=== PATIENT | female | born 1955 | race Caucasian/White ===

== ENCOUNTER → 2017-08-24 | Outpatient (CLI) | payer OTHER | LOC: M WUC 18:00 | DX: Z00.00 Encounter for general adult medical examination without abnormal findings (principal) | CPT/HCPCS: 71046 ==

== ENCOUNTER 2018-07-17 10:03 | Day surgery (SDC) | payer MEDICARE, OTHER ==
[~2018-07-17 10:03] MED LIST: LIDOCAINE 2% INJ 100 MG/5 ML SDV (FOR ANES.) As Ordered; PROPOFOL 200 MG/20 ML VIAL As Ordered
[2018-07-17] MEDS: NS 1,000 ML IV (10:22)
[2018-07-17] MEDS ORDERED: LIDOCAINE 2% INJ 100 MG/5 ML SDV (FOR ANES.) As Ordered (10:59)
[2018-07-17] MEDS ORDERED: PROPOFOL 200 MG/20 ML VIAL As Ordered (11:57)
== END 2018-07-17 12:54 | disposition home or self-care (01) ==
LOC: M OPP 10:03
DX: Z12.11 Encounter for screening for malignant neoplasm of colon (principal); K63.5 Polyp of colon; D12.3 Benign neoplasm of transverse colon; K57.30 Diverticulosis of large intestine without perforation or abscess without bleeding; K64.0 First degree hemorrhoids; K29.50 Unspecified chronic gastritis without bleeding; K20.9 Esophagitis, unspecified; K22.8 Other specified diseases of esophagus; K44.9 Diaphragmatic hernia without obstruction or gangrene; E03.9 Hypothyroidism, unspecified; I10 Essential (primary) hypertension; G47.30 Sleep apnea, unspecified; F33.9 Major depressive disorder, recurrent, unspecified; R06.83 Snoring; Z79.890 Hormone replacement therapy; Z79.899 Other long term (current) drug therapy; Z79.82 Long term (current) use of aspirin; Z86.19 Personal history of other infectious and parasitic diseases; Z88.1 Allergy status to other antibiotic agents; Z88.8 Allergy status to other drugs, medicaments and biological substances
CPT/HCPCS: 45385

== ENCOUNTER → 2021-10-27 | Outpatient (CLI) | payer MEDICARE, OTHER ==
[~2021-10-27] MED LIST changes: +BUPR-69; +CHLO125TA PO; -LIDOCAINE 2% INJ 100 MG/5 ML SDV (FOR ANES.) As Ordered; -PROPOFOL 200 MG/20 ML VIAL As Ordered; +SERT50TA29; +SUPRSOL2; +SYNT100T
== END ==
LOC: M RAD 14:27
PROVIDERS: ATTEND Nurse Practitioner Adult Health
DX: M79.89 Other specified soft tissue disorders (principal)

== ENCOUNTER → 2021-12-06 | Outpatient (CLI) | payer MEDICARE, OTHER ==
[~2021-12-06] MED LIST changes: +BENA25TA5 PO; +CALCD50TA PO; +CLIN1GEL19 TOP; +CLOB5CR TOP; +GLUC1CAP10 PO; +HYDR12CA PO; +KETO2SHA8 TOP; +LEXA1TAB PO; +LIDOCAINE 1% MDV 20ML VIAL As Ordered ONE; +VALS1TAB66 PO; +VITMTA PO
[2021-12-06 10:58] VITALS: BP 135/71
== END ==
LOC: M IRPRO 09:54
PROVIDERS: ATTEND Surgery
DX: D36.7 Benign neoplasm of other specified sites (principal)

== ENCOUNTER → 2022-01-19 | Outpatient (REF) | payer MEDICARE, OTHER ==
[~2022-01-19] MED LIST changes: -LIDOCAINE 1% MDV 20ML VIAL As Ordered ONE
== END ==
LOC: M LAB REF 16:10
PROVIDERS: ATTEND Nurse Practitioner Adult Health
DX: M62.81 Muscle weakness (generalized) (principal)

== ENCOUNTER → 2022-02-03 | Outpatient (CLI) | payer MEDICARE, OTHER | LOC: M EKG 11:17 | PROVIDERS: ATTEND Nurse Practitioner Adult Health | DX: R00.2 Palpitations (principal) ==

== ENCOUNTER → 2022-02-17 | Outpatient (CLI) | payer MEDICARE, OTHER | LOC: M WUC 15:04 | PROVIDERS: ATTEND Physician Assistant | DX: S20.212A Contusion of left front wall of thorax, initial encounter (principal); W18.30XA Fall on same level, unspecified, initial encounter; Y92.009 Unspecified place in unspecified non-institutional (private) residence as the place of occurrence of the external cause ==

== ENCOUNTER → 2022-04-29 | Outpatient (CLI) | payer MEDICARE, OTHER | LOC: M RAD 16:04 | PROVIDERS: ATTEND Nurse Practitioner Adult Health | DX: G45.3 Amaurosis fugax (principal) ==

== ENCOUNTER → 2022-10-19 | Outpatient (CLI) | payer MEDICARE, OTHER ==
[~2022-10-19] MED LIST changes: +ISOVUE-370 76% 100ML VIAL As Ordered ONE
== END ==
LOC: M RAD 14:57
PROVIDERS: ATTEND Physician Assistant Medical
DX: R55 Syncope and collapse (principal)
CPT/HCPCS: 70470; Q9967

== ENCOUNTER 2022-10-31 17:10 | Inpatient (IN) | payer MEDICARE, OTHER ==
[~2022-10-31] VITALS: Ht 177.8 cm; Wt 99.9 kg
[~2022-10-31 17:10] MED LIST changes: -ISOVUE-370 76% 100ML VIAL As Ordered ONE; -SYNT100T; +SYNT100T PO
[2022-10-31] MEDS ORDERED: VALS40TA9 PO (17:27)
[2022-10-31] MEDS ORDERED: NS 1,000 ML IV ONE (18:35)
[2022-10-31 19:39] LABS: BASO # 0.1 10^3/uL (0.0-0.2); BASO % 0.9 % (0.0-1.0); EOS # 0.2 10^3/uL (0.0-0.5); EOS % 3.1 % (0.0-3.0); HEMATOCRIT 44.5 % (36.0-47.0); HEMOGLOBIN 14.7 g/dl (12.0-15.5); LYMPH % 26.1 % (24.0-44.0); MEAN CORPUSCULAR HEMOGLOBIN 29.8 pg (27.0-33.0); MEAN CORPUSCULAR VOLUME 90.3 fl (80.0-96.0); MONO # 0.4 10^3/uL (0.0-0.8); MONO % 5.5 % (2.0-8.0); NEUTROPHILS # 4.9 10^3/uL (1.5-8.5); PLATELET COUNT, AUTOMATED 326 10^3/uL (150-450); RED BLOOD COUNT 4.93 10^6/uL (4.00-5.40); WHITE BLOOD COUNT 7.7 10^3/uL (4.0-10.0)
[2022-10-31 19:45] LABS: LIPASE 27 U/L (12-53)
[2022-10-31 19:50] LABS: ALBUMIN 3.9 G/DL (3.2-5.2); ALKALINE PHOSPHATASE 111 U/L (46-116); ALT/SGPT 14 U/L (7.0-40); AST/SGOT 18 U/L (<34); BILIRUBIN,DIRECT 0.2 MG/DL (<0.4); CK-MB VALUE MASS < 1.0 NG/ML (<3.6); INR 0.95; MAGNESIUM LEVEL 1.8 MG/DL (1.8-2.4); PARTIAL THROMBOPLASTIN TIME 28.9 SECONDS (24.8-34.2); PROTHROMBIN TIME 12.9 SECONDS (12.5-14.5); THYROID STIMULATING HORMONE 1.283 uIU/ML (0.55-4.78); TOTAL PROTEIN 6.8 G/DL (5.7-8.2)
[2022-10-31 19:55] LABS: CPK CREATINE PHOSPHOKINASE 57 U/L (34-145); MB/CK RELATIVE INDEX 1.75 (< OR =4)
[2022-10-31 20:43] LABS: CK-MB VALUE MASS < 1.0 NG/ML (<3.6)
[2022-10-31 20:56] LABS: CPK CREATINE PHOSPHOKINASE 45 U/L (34-145); MB/CK RELATIVE INDEX 2.22 (< OR =4)
[2022-10-31] MEDS ORDERED: METOPROLOL TART 25 MG TABLET PO ONE (21:50)
[2022-10-31] MEDS ORDERED: CYCL5TAB PO (22:35)
[2022-10-31] MEDS ORDERED: ALBU8.5H INH (22:36)
[2022-10-31] MEDS ORDERED: ALEV220T22 PO (22:36)
[2022-10-31] MEDS ORDERED: HOME MED LIST COMPLETE! XX SCH (22:40)
[2022-11-01] MEDS ORDERED: CYCLOBENZAPRINE 5MG TABLET PO PRN (00:40)
[2022-11-01] MEDS ORDERED: GLUCOSE 4GM CHEW TABLET PO PRN (00:40)
[2022-11-01] MEDS ORDERED: GLUCAGON INJ 1MG VIAL SC PRN (00:40)
[2022-11-01] MEDS ORDERED: POTASSIUM CHLORIDE 10% LIQ 20MEQ/15ML UDC PO ONE (00:40)
[2022-11-01] MEDS ORDERED: DEXTROSE 50% 50ML SYRINGE IV PRN (00:40)
[2022-11-01 01:50] VITALS: BP 134/90
[2022-11-01 05:26] LABS: HEMATOCRIT 39.1 % (36.0-47.0); HEMOGLOBIN 13.1 g/dl (12.0-15.5); MEAN CORPUSCULAR HEMOGLOBIN 30.2 pg (27.0-33.0); MEAN CORPUSCULAR HGB CONC 33.5 g/dl (32.0-36.5); MEAN CORPUSCULAR VOLUME 90.1 fl (80.0-96.0); PLATELET COUNT, AUTOMATED 289 10^3/uL (150-450); RED BLOOD COUNT 4.34 10^6/uL (4.00-5.40); WHITE BLOOD COUNT 7.7 10^3/uL (4.0-10.0)
[2022-11-01 05:50] LABS: BLOOD UREA NITROGEN 7 MG/DL (9-23); CALCIUM LEVEL 8.3 MG/DL (8.3-10.6); CARBON DIOXIDE LEVEL 26 MMOL/L (20-31); CHLORIDE LEVEL 108 MMOL/L (98-107); CREATININE FOR GFR 0.68 MG/DL (0.55-1.30); GLOMERULAR FILTRATION RATE > 60.0 (>45); GLUCOSE, FASTING 114 MG/DL (74-106); MAGNESIUM LEVEL 1.9 MG/DL (1.8-2.4); POTASSIUM SERUM 4.4 MMOL/L (3.5-5.1); SODIUM LEVEL 138 MMOL/L (136-145)
[2022-11-01 06:00] VITALS: BP 123/70
[2022-11-01] MEDS ORDERED: LEVOTHYROXINE 100MCG TABLET (0.1MG) PO SCH (06:00)
[2022-11-01] MEDS: INSULIN LISPRO (NovoLOG) PER UNIT SC SCH ×2 (07:30→11:34)
[2022-11-01 08:37] VITALS: BP 120/70
[2022-11-01] MEDS ORDERED: METOPROLOL TART 25 MG TABLET PO SCH (09:00)
[2022-11-01] MEDS ORDERED: VALSARTAN 40MG TABLET (DIOVAN) PO SCH (09:00)
[2022-11-01] MEDS ORDERED: ESCITALOPRAM OXALATE 10 MG TAB (LEXAPRO) PO SCH (09:00)
[2022-11-01] MEDS ORDERED: ENOXAPARIN 40MG/0.4ML SYRINGE (J1650 PER 10MG) SC SCH (09:00)
[2022-11-01 14:00] VITALS: BP 135/61
[2022-11-01] MEDS ORDERED: METO1TAB32 PO (14:03)
[2022-11-01] MEDS ORDERED: INSULIN LISPRO (NovoLOG) PER UNIT SC SCH (21:00)
== END 2022-11-01 16:01 | disposition home or self-care (01) | DRG 310 ==
LOC: M ED 17:10 → UNDOADMIN 23:54 → M ED INP 23:54 → M MSPAV 11-01 01:30
PROVIDERS: ADMIT Family Medicine; ATTEND Internal Medicine
PROC: B246ZZZ Ultrasonography of Right and Left Heart (ICD-10-PCS; principal; 2022-11-01)
DX: I49.3 Ventricular premature depolarization (principal); R73.03 Prediabetes; I10 Essential (primary) hypertension; E89.0 Postprocedural hypothyroidism; R42 Dizziness and giddiness; E87.6 Hypokalemia; Z79.890 Hormone replacement therapy; Z88.1 Allergy status to other antibiotic agents; Z79.899 Other long term (current) drug therapy

== ENCOUNTER 2023-11-30 12:19 | Inpatient (IN) | payer MEDICARE, OTHER ==
[~2023-11-30] VITALS: Ht 175.3 cm; Wt 100.8 kg
[~2023-11-30 12:19] MED LIST changes: +ALBU8.5H INH; +ALEV220T22 PO; +CYCL5TAB PO; +LEXA1TAB2 PO; +METO1TAB32 PO; +VALS40TA9 PO; +VITA100093 PO
[2023-11-30] MEDS ORDERED: OMEP-173 PO (12:33)
[2023-11-30] MEDS ORDERED: ACET160S3 PO (12:33)
[2023-11-30 12:56] LABS: BASO % 0.2 % (0.0-1.0); EOS % 0.2 % (0.0-3.0); HEMATOCRIT 36.6 % (36.0-47.0); HEMOGLOBIN 12.5 g/dl (12.0-15.5); LYMPH # 0.3 10^3/uL (1.5-5.0); LYMPH % 1.5 % (24.0-44.0); MEAN CORPUSCULAR HEMOGLOBIN 30.2 pg (27.0-33.0); MEAN CORPUSCULAR HGB CONC 34.2 g/dl (32.0-36.5); MEAN CORPUSCULAR VOLUME 88.4 fl (80.0-96.0); MONO # 1.4 10^3/uL (0.0-0.8); MONO % 7.9 % (2.0-8.0); NEUTROPHILS # 15.9 10^3/uL (1.5-8.5); NEUTROPHILS % 89.4 % (36.0-66.0); PLATELET COUNT, AUTOMATED 259 10^3/uL (150-450); RED BLOOD COUNT 4.14 10^6/uL (4.00-5.40); WHITE BLOOD COUNT 17.8 10^3/uL (4.0-10.0)
[2023-11-30 13:25] LABS: ALBUMIN 2.7 G/DL (3.2-5.2); BILIRUBIN,DIRECT 0.5 MG/DL (<0.4); CREATININE FOR GFR 1.23 MG/DL (0.55-1.30); POTASSIUM SERUM 3.8 MMOL/L (3.5-5.1); TOTAL PROTEIN 5.8 G/DL (5.7-8.2)
[2023-11-30 13:26] LABS: THYROID STIMULATING HORMONE 2.224 uIU/ML (0.55-4.78)
[2023-11-30 13:27] LABS: THYROXINE (T4) 10.2 UG/DL (4.5-10.9)
[2023-11-30] MEDS: cefTRIAXone SOD 1 GM in D5W MINI-BAG PLUS 50 ML IV ONE (15:14)
[2023-11-30] MEDS ORDERED: ONDANSETRON 4MG 2ML VIAL IV PRN (17:00)
[2023-11-30] MEDS ORDERED: METO1TAB32 PO (17:08)
[2023-11-30] MEDS ORDERED: ACET-683 PO (17:08)
[2023-11-30] MEDS ORDERED: HOME MED LIST COMPLETE! XX SCH (17:15)
[2023-11-30 17:42] LABS: PROCALCITONIN 2.09 ng/ml
[2023-11-30] MEDS: ACETAMINOPHEN TAB 650MG DOSE (2X325MG) PO PRN (18:37)
[2023-11-30] MEDS: NS 1,000 ML IV SCH (18:37)
[2023-11-30] MEDS: DOCUSATE SODIUM 100MG CAPSULE PO SCH (22:30)
[2023-11-30] MEDS: METOPROLOL SUCC *XL* 25MG TAB (TopROL *XL*) PO SCH (22:31)
[2023-12-01] MEDS: cefTRIAXone SOD 1 GM in D5W MINI-BAG PLUS 50 ML IV SCH (02:59)
[2023-12-01] MEDS: LEVOTHYROXINE 100MCG TABLET (0.1MG) PO SCH (05:53)
[2023-12-01 06:00] VITALS: BP 131/63; TEMP 97; O2SAT 93
[2023-12-01 06:44] LABS: BASO % 0.2 % (0.0-1.0); EOS # 0.1 10^3/uL (0.0-0.5); EOS % 0.4 % (0.0-3.0); HEMATOCRIT 33.1 % (36.0-47.0); HEMOGLOBIN 11.4 g/dl (12.0-15.5); LYMPH # 0.8 10^3/uL (1.5-5.0); LYMPH % 4.9 % (24.0-44.0); MEAN CORPUSCULAR HEMOGLOBIN 30.2 pg (27.0-33.0); MEAN CORPUSCULAR HGB CONC 34.4 g/dl (32.0-36.5); MEAN CORPUSCULAR VOLUME 87.6 fl (80.0-96.0); MONO # 1.3 10^3/uL (0.0-0.8); MONO % 8.1 % (2.0-8.0); NEUTROPHILS # 13.9 10^3/uL (1.5-8.5); NEUTROPHILS % 85.6 % (36.0-66.0); PLATELET COUNT, AUTOMATED 260 10^3/uL (150-450); RED BLOOD COUNT 3.78 10^6/uL (4.00-5.40); WHITE BLOOD COUNT 16.2 10^3/uL (4.0-10.0)
[2023-12-01 07:14] LABS: CALCIUM LEVEL 7.7 MG/DL (8.3-10.6); CREATININE FOR GFR 1.23 MG/DL (0.55-1.30); POTASSIUM SERUM 3.6 MMOL/L (3.5-5.1)
[2023-12-01] MEDS: ENOXAPARIN 40MG/0.4ML SYRINGE (J1650 PER 10MG) SC SCH (09:11)
[2023-12-01] MEDS: PANTOPRAZOLE 40MG VIAL IV SCH (09:11)
[2023-12-01 14:00] VITALS: BP 149/60; TEMP 97.9; O2SAT 96
[2023-12-01 20:35] VITALS: BP 146/62; TEMP 98.6; O2SAT 95
[2023-12-01 21:35] VITALS: BP 146/62
[2023-12-02 05:20] VITALS: BP 128/66; TEMP 97.7; O2SAT 94
[2023-12-02 05:50] LABS: BASO # 0.1 10^3/uL (0.0-0.2); BASO % 0.4 % (0.0-1.0); EOS # 0.1 10^3/uL (0.0-0.5); EOS % 0.6 % (0.0-3.0); HEMATOCRIT 33.6 % (36.0-47.0); HEMOGLOBIN 11.2 g/dl (12.0-15.5); LYMPH % 7.5 % (24.0-44.0); MEAN CORPUSCULAR HEMOGLOBIN 29.8 pg (27.0-33.0); MEAN CORPUSCULAR HGB CONC 33.3 g/dl (32.0-36.5); MEAN CORPUSCULAR VOLUME 89.4 fl (80.0-96.0); MONO # 1.1 10^3/uL (0.0-0.8); MONO % 7.7 % (2.0-8.0); NEUTROPHILS # 11.4 10^3/uL (1.5-8.5); NEUTROPHILS % 82.9 % (36.0-66.0); PLATELET COUNT, AUTOMATED 278 10^3/uL (150-450); RED BLOOD COUNT 3.76 10^6/uL (4.00-5.40); WHITE BLOOD COUNT 13.8 10^3/uL (4.0-10.0)
[2023-12-02 06:17] LABS: CALCIUM LEVEL 7.6 MG/DL (8.3-10.6); CREATININE FOR GFR 1.15 MG/DL (0.55-1.30); GLOMERULAR FILTRATION RATE 49.7 (>39); POTASSIUM SERUM 3.4 MMOL/L (3.5-5.1)
[2023-12-02] MEDS ORDERED: PROBCAP14 PO (11:12)
[2023-12-02] MEDS ORDERED: CEFD300CAP PO (11:12)
== END 2023-12-02 13:15 | disposition home or self-care (01) | DRG 872 ==
LOC: M ED 12:19 → EDBD 12:19 → M ED INP 16:57 → ENRESERV 12-01 00:52 → M MSPAV 12-01 02:19
PROVIDERS: ADMIT Internal Medicine Nephrology; ATTEND Internal Medicine Nephrology
DX: A41.51 Sepsis due to Escherichia coli [E. coli] (principal); N39.0 Urinary tract infection, site not specified; I10 Essential (primary) hypertension; N32.81 Overactive bladder; K57.90 Diverticulosis of intestine, part unspecified, without perforation or abscess without bleeding; R73.03 Prediabetes; E89.0 Postprocedural hypothyroidism; I34.0 Nonrheumatic mitral (valve) insufficiency; G47.33 Obstructive sleep apnea (adult) (pediatric); Z85.3 Personal history of malignant neoplasm of breast; Z92.3 Personal history of irradiation; Z90.710 Acquired absence of both cervix and uterus; Z79.890 Hormone replacement therapy; Z79.899 Other long term (current) drug therapy; Z88.1 Allergy status to other antibiotic agents

== ENCOUNTER → 2025-03-11 | Outpatient (CLI) | payer MEDICARE, OTHER ==
[~2025-03-11] MED LIST changes: +ACET-683 PO; +ACET160S3 PO; +CEFD300CAP PO; -CYCL5TAB PO; +CYCL5TAB4 PO; +KETO120S5 TOP; -KETO2SHA8 TOP; +OMEP-173 PO; +PROBCAP14 PO
== END ==
LOC: M RAD 14:48
PROVIDERS: ATTEND Physician Assistant Medical
DX: M47.816 Spondylosis without myelopathy or radiculopathy, lumbar region (principal); Z91.51 Personal history of suicidal behavior; M41.9 Scoliosis, unspecified; Z87.81 Personal history of (healed) traumatic fracture; M16.0 Bilateral primary osteoarthritis of hip; M46.1 Sacroiliitis, not elsewhere classified

== ENCOUNTER → 2025-08-20 | Outpatient (CLI) | payer MEDICARE, OTHER ==
[~2025-08-20] MED LIST changes: +HYDR12.510 PO; -HYDR12CA PO
== END ==
LOC: M RAD 11:50
PROVIDERS: ATTEND Internal Medicine
DX: R05.3 Chronic cough (principal)